=== PATIENT | male | born 1965 | race Caucasian/White ===

== ENCOUNTER 2017-02-14 08:59 | Day surgery (SDC) | payer OTHER ==
[2017-02-14] MEDS ORDERED: Dextrose 5%-Lactated Ringers 1,000 ML IV SCH (09:30)
[2017-02-14] MEDS ORDERED: Glycopyrrolate 0.2 MG/ML 2 ML SDV IVPUSH ONE (10:00)
[2017-02-14] MEDS ORDERED: Propofol 200 MG/20 ML SDV ONE (10:55)
[2017-02-14] MEDS ORDERED: Midazolam 1 MG/ML 2 ML SDV ONE (10:55)
[2017-02-14] MEDS ORDERED: fentaNYL 100 MCG/2 ML SDV ONE (10:55)
[2017-02-14] MEDS ORDERED: Pantoprazole 40 MG Vial IVPUSH ONE (12:02)
[2017-02-14 12:55] VITALS: BP 129/84
--- NOTE | 2017-02-17 17:55 | OR ---
DATE OF PROCEDURE: 02/14/2017 PREOPERATIVE DIAGNOSIS: Probable gastroesophageal reflux disease. POSTOPERATIVE DIAGNOSES: 1. Ulcerative gastroesophageal reflux disease associated with a moderate-sized hiatal hernia. 2. Mild antral gastritis. OPERATIVE PROCEDURE: Esophagogastroduodenoscopy with: 1. Biopsies of esophagogastric junction for histologic evaluation. 2. Biopsies of antrum for CLOtest. ANESTHESIA: IV sedation. INDICATIONS FOR PROCEDURE: This 51-year-old is presenting with worsening problems with heartburn along with some symptoms of dysphagia referable to cervical area which he attributes to some intermittent aspiration of esophageal contents. He has been on a variety of proton pump inhibitors and H2 blockers. The proton pump inhibitors were somewhat more efficacious in control but neither medical management did not appear to be overall satisfactory. The plan is to proceed with upper GI endoscopy with biopsies as indicated. Potential risks including bleeding and perforation were discussed, and the patient wishes to proceed. DETAILS OF PROCEDURE: The patient was taken to the operating room and placed in a left lateral decubitus position. IV sedation was administered, after which the upper GI endoscope was passed orally through the length of the esophagus into the stomach with retroflexion view of the fundus, thereafter through the pyloric channel and into the proximal duodenum. Findings included normal hypopharynx, larynx, upper esophageal sphincter, and esophageal body. At the EG junction, a small hiatal hernia was present. This, however, was associated with marked ulceration of the gastroesophageal junction with three linear ulcers extending upward into the esophagus from its esophagogastric junction. No stricture or gross evidence of neoplasia was seen. No blood or bleeding was seen. The ulcers were covered presently with some fibrinous exudate. Within the stomach, there was some mild redness within the pre-pyloric area without erosions or ulcers and the pyloric channel and visualized portion of the duodenum were unremarkable. At this point, biopsies were obtained from the antrum and sent for CLOtest for H. pylori. Multiple biopsies were then obtained from esophagogastric junction, sent for histologic evaluation. Minimal bleeding from the biopsy sites was seen and the procedure then concluded. The patient was given Protonix 40 mg IV in the recovery room and then begin on Protonix 40 mg daily. See the patient back on 02/26/2017 to see how he is doing in terms of medical management. Surgical options in this case would include a Shaneka fundoplication versus gastric bypass with the latter likely be the preferred approach should the patient wished to undergo surgical treatment and presently has a BMI of 37.6 with associated hypertension, glucose intolerance, i.e., prediabetes, hypercholesterolemia, and based on his appearance while sedated probably has obstructive sleep apnea. In this set up, the patient's surgery with Shaneka fundoplication will have relatively poor outcome where as gastric bypass would essentially cater to his reflux disease by means of diversion of gastric contents into a more distal location and also regarding digressing problems with a metabolic syndrome. We will see the patient back on to discuss those treatment options. Adan Luna MD /[id number]
== END 2017-02-14 13:06 | disposition home or self-care (01) ==
LOC: JP.SDS 08:59
PROVIDERS: ATTEND Surgery
DX: K29.50 Unspecified chronic gastritis without bleeding (principal); K21.0 Gastro-esophageal reflux disease with esophagitis; K44.9 Diaphragmatic hernia without obstruction or gangrene; I10 Essential (primary) hypertension; E11.9 Type 2 diabetes mellitus without complications; F17.200 Nicotine dependence, unspecified, uncomplicated
CPT/HCPCS: 43239; 87081; C9113; J2250; J2704; J3010; J7042; 88305; 88312; J3490